=== PATIENT | female | born 1975 | race Caucasian/White ===

== ENCOUNTER 2023-08-03 17:51 | Inpatient (IN) | payer SELFPAY ==
[~2023-08-03] VITALS: Ht 162.6 cm; Wt 63.0 kg
[2023-08-03] MEDS ORDERED: diphenhydrAMINE 50MG/ML VIAL IM ONE (18:15)
[2023-08-03] MEDS ORDERED: MIDAZOLAM INJ 2MG/2ML VIAL IM ONE (18:15)
[2023-08-03] MEDS ORDERED: HALOPERIDOL 5MG/ML 1ML VIAL IM ONE (18:15)
[2023-08-03 18:47] LABS: BASO # 0.1 10^3/uL (0.0-0.2); BASO % 0.5 % (0.0-1.0); EOS % 0.2 % (0.0-3.0); HEMOGLOBIN 15.7 g/dl (12.0-15.5); LYMPH # 2.6 10^3/uL (1.5-5.0); LYMPH % 19.7 % (24.0-44.0); MEAN CORPUSCULAR HEMOGLOBIN 27.5 pg (27.0-33.0); MEAN CORPUSCULAR HGB CONC 33.4 g/dl (32.0-36.5); MEAN CORPUSCULAR VOLUME 82.3 fl (80.0-96.0); MONO # 0.7 10^3/uL (0.0-0.8); NEUTROPHILS # 9.7 10^3/uL (1.5-8.5); NEUTROPHILS % 74.4 % (36.0-66.0); PLATELET COUNT, AUTOMATED 420 10^3/uL (150-450); RED BLOOD COUNT 5.71 10^6/uL (4.00-5.40); WHITE BLOOD COUNT 13.1 10^3/uL (4.0-10.0)
[2023-08-03 19:08] LABS: ETHYL ALCOHOL (ETHANOL) < 0.003 % (0.000-0.010)
[2023-08-03 19:09] LABS: CPK CREATINE PHOSPHOKINASE 57 U/L (34-145); SALICYLATE LEVEL < 3.0 MG/DL (<30)
[2023-08-03 19:10] LABS: ALBUMIN 4.2 G/DL (3.2-5.2); ALKALINE PHOSPHATASE 96 U/L (46-116); ALT/SGPT 44 U/L (7.0-40); AST/SGOT 23 U/L (<34); BILIRUBIN,DIRECT 0.2 MG/DL (<0.4); BILIRUBIN,TOTAL 0.6 MG/DL (0.3-1.2); BLOOD UREA NITROGEN 8 MG/DL (9-23); CALCIUM LEVEL 9.5 MG/DL (8.5-10.1); CARBON DIOXIDE LEVEL 25 MMOL/L (20-31); CHLORIDE LEVEL 105 MMOL/L (98-107); CREATININE FOR GFR 0.67 MG/DL (0.55-1.30); GLOMERULAR FILTRATION RATE > 60.0 (>58); GLUCOSE, FASTING 140 MG/DL (60-100); POTASSIUM SERUM 3.4 MMOL/L (3.5-5.1); SODIUM LEVEL 144 MMOL/L (136-145); TOTAL PROTEIN 7.2 G/DL (5.7-8.2)
[2023-08-03 19:12] LABS: THYROID STIMULATING HORMONE 0.898 uIU/ML (0.55-4.78)
[2023-08-03 19:18] LABS: AMPHETAMINES LEVEL URINE NEGATIVE (NEGATIVE); BARBITURATES URINE NEGATIVE (NEGATIVE); BENZODIAZEPINES URINE NEGATIVE (NEGATIVE); COCAINE METABOLITE URINE NEGATIVE (NEGATIVE); METHADONE URINE NEGATIVE (NEGATIVE); OPIATES URINE NEGATIVE (NEGATIVE); PHENCYCLIDINE URINE NEGATIVE (NEGATIVE)
[2023-08-03 19:21] LABS: CANNABINOIDS URINE POSITIVE (NEGATIVE)
[2023-08-03 19:24] LABS: HCG, SERUM QUALITATIVE NEGATIVE (NEGATIVE)
[2023-08-04 01:44] LABS: RSV AMPLIFICATION NEGATIVE (NEGATIVE)
[2023-08-04] MEDS ORDERED: MED REC CURRENTLY UNOBTAINABLE XX SCH (06:40)
[2023-08-04] MEDS ORDERED: HOME MED LIST COMPLETE! XX SCH (22:45)
[2023-08-05] MEDS ORDERED: LORazepam 2 MG TAB PO ONE (07:10)
[2023-08-05] MEDS ORDERED: LORazepam 2 MG/ML 1ML VIAL IM STA (07:28)
[2023-08-05] MEDS ORDERED: OLANZapine INTRAMUSCULAR 10MG VIAL IM ONE (07:30)
[2023-08-05] MEDS ORDERED: LORazepam 2 MG TAB PO STA (19:57)
[2023-08-05 21:02] VITALS: BP 141/71
[2023-08-06] MEDS ORDERED: MAALOX 30 ML SUSP *UDC PO PRN (12:40)
[2023-08-06] MEDS ORDERED: ACETAMINOPHEN TAB 650MG DOSE (2X325MG) PO PRN (12:40)
[2023-08-06] MEDS ORDERED: MOM 30ML SUSPENSION UDC PO PRN (12:40)
[2023-08-06] MEDS ORDERED: traZODone 50 MG TAB PO PRN (12:40)
[2023-08-06] MEDS ORDERED: IBUPROFEN 400MG TAB PO PRN (12:40)
[2023-08-06] MEDS ORDERED: diphenhydrAMINE 25MG CAP PO PRN (12:40)
[2023-08-06] MEDS ORDERED: OLANZapine ORAL DISINTEGRATING TAB 5MG PO PRN (12:40)
[2023-08-06 16:23] VITALS: BP 141/80; TEMP 98; O2SAT 98
[2023-08-07 09:00] VITALS: BP 141/80; TEMP 98; O2SAT 98
[2023-08-09 06:23] VITALS: BP 161/85; TEMP 98.4; O2SAT 98
[2023-08-10] MEDS: PALIPERIDONE 3MG ER TAB (INVEGA) PO SCH ×2 (09:00→21:00)
[2023-08-11] MEDS: PALIPERIDONE 3MG ER TAB (INVEGA) PO SCH ×2 (09:00→21:00)
[2023-08-12] MEDS: PALIPERIDONE 3MG ER TAB (INVEGA) PO SCH ×2 (10:16→20:32)
[2023-08-13] MEDS ORDERED: PALI1TAB2 PO (07:51)
[2023-08-13] MEDS: PALIPERIDONE 3MG ER TAB (INVEGA) PO SCH (08:51)
== END 2023-08-13 11:41 | disposition home or self-care (01) | DRG 753 ==
LOC: M ED 17:51 → M ED INP 08-06 12:37 → UNDOADMIN 08-06 12:37 → M PSY 08-06 15:05
PROVIDERS: ADMIT Student in an Organized Health Care Education/Training Program; ATTEND Student in an Organized Health Care Education/Training Program
DX: F31.9 Bipolar disorder, unspecified (principal); E24.9 Cushing's syndrome, unspecified; Z78.1 Physical restraint status; G35 Multiple sclerosis; F29 Unspecified psychosis not due to a substance or known physiological condition; Z56.0 Unemployment, unspecified; E87.6 Hypokalemia; Z20.822 Contact with and (suspected) exposure to COVID-19